=== PATIENT | female | born 2000 | race Caucasian/White ===

== ENCOUNTER 2022-03-31 10:34 | Outpatient (CLI) | payer BC, SELFPAY | END 2022-03-31 10:35 | disposition home or self-care (01) | LOC: FRMREF 10:35 | PROVIDERS: PCP Family Medicine; Visit Provider Family Medicine | DX: Z00.00 Encounter for general adult medical examination without abnormal findings (principal); Z02.5 Encounter for examination for participation in sport | CPT/HCPCS: 85660 ==

== ENCOUNTER 2024-04-11 09:24 | Outpatient (CLI) | payer BC, SELFPAY | END 2024-04-11 09:25 | disposition home or self-care (01) | PROVIDERS: PCP Physician Assistant Medical; Visit Provider Physician Assistant Medical | DX: Z13.220 Encounter for screening for lipoid disorders (principal); Z13.228 Encounter for screening for other metabolic disorders; Z13.29 Encounter for screening for other suspected endocrine disorder | CPT/HCPCS: 80053; 80061; 84443 ==

== ENCOUNTER 2024-11-15 13:09 | Outpatient (CLI) | payer BC, SELFPAY | END 2024-11-15 13:10 | disposition home or self-care (01) | LOC: FRMREF 13:10 | PROVIDERS: PCP Physician Assistant Medical; Visit Provider Physician Assistant Medical | DX: D50.9 Iron deficiency anemia, unspecified (principal) | CPT/HCPCS: 82728 ==

== ENCOUNTER 2024-12-04 13:02 | Outpatient (RCR) | payer BC, SELFPAY ==
--- NOTE | 2024-11-27 15:32 | URNOTE ---
Feraheme Q0138, 1020 mg has been approved x 1 dose 11/17/24-05/16/2025. REf #[id number]
[2024-12-04 13:09] VITALS: BP 130/76; PULSE 82; RESP 21; TEMP 36.6; O2SAT 99
[2024-12-04] MEDS: ferumoxytoL 1,020 MG in 0.9 % SODIUM CHLORIDE 250 ml 250 ML 568 MG IVPB (14:33)
[2024-12-04 15:10] VITALS: BP 100/56; PULSE 66; RESP 18; O2SAT 100
== END 2025-06-02 23:59 | disposition home or self-care (01) ==
LOC: CCIC 13:02
PROVIDERS: PCP Physician Assistant Medical; Referring Provider Physician Assistant Medical; Visit Provider Clinical Nurse Specialist
DX: D50.9 Iron deficiency anemia, unspecified (principal)
CPT/HCPCS: 96365; J7050; Q0138

== ENCOUNTER 2025-05-21 10:20 | Outpatient (CLI) | payer BC, SELFPAY | END 2025-05-21 10:21 | disposition home or self-care (01) | LOC: NFLDREF 05-24 15:30 | PROVIDERS: Referring Provider Physician Assistant Medical; Visit Provider Physician Assistant Medical | DX: Z00.00 Encounter for general adult medical examination without abnormal findings (principal); D50.0 Iron deficiency anemia secondary to blood loss (chronic) | CPT/HCPCS: 80053; 80061 ==

== ENCOUNTER 2025-06-11 09:46 | Outpatient (CLI) | payer BC, SELFPAY ==
--- NOTE | 2025-06-11 10:00 | CRLHL7_ITS ---
For Patients: As a result of the Century Cures Act, medical imaging exams and procedure reports are released immediately into your electronic medical record. You may view this report before your referring provider. If you have questions, please contact your health care provider. Indication: Chronic sinusitis. Technique: Noncontrast CT of the paranasal sinuses with multiplanar reconstruction utilizing bone and soft tissue algorithms. Comparison: None available. Findings: Frontal sinuses: Clear. Maxillary sinuses: Small postinflammatory left maxillary retention cyst. Trace mucosal thickening in the right maxillary sinus. Mucosal apposition with the maxillary infundibula with otherwise patent ostiomeatal complexes. Ethmoid sinuses: Trace diffuse mucosal thickening. Focal soft tissue density within the left anterior ethmoid air cells. Sphenoid sinuses: Clear. Mucosal apposition at the sphenoid ostia. Osseous sphenoid septa originating posteriorly from the carotid canals. Nasal cavity: Leftward deviation of the nasal septum with soft tissue density effacing the left inferior meatus. No large septal spur. Impression: 1. Trace mucosal thickening within the anterior ethmoid air cells and right maxillary sinus. 2. Small postinflammatory left maxillary mucous retention cyst. 3. Leftward deviation of the nasal septum with mild effacement of the left anterior nasal cavity and inferior meatus. Please note that all CT scans at this facility use dose modulation, iterative reconstruction, and/or weight-based dosing when appropriate to reduce radiation dose to as low as reasonably achievable. Dictated by Gabe Rodriguez MD @ 06/11/2025 3:23:29 PM (Electronically Signed)
== END 2025-06-11 09:47 | disposition home or self-care (01) ==
LOC: CT 09:47
PROVIDERS: PCP Physician Assistant Medical; Visit Provider Otolaryngology
DX: J32.9 Chronic sinusitis, unspecified (principal); J32.0 Chronic maxillary sinusitis; J34.2 Deviated nasal septum; J32.2 Chronic ethmoidal sinusitis
CPT/HCPCS: 70486

== ENCOUNTER 2025-07-20 08:13 | Day surgery (SDC) | payer BC, SELFPAY ==
[2025-07-20] VITALS (12 sets, daily range): BP systolic 96–125; BP diastolic 57–74; PULSE 54–83; RESP 12–16; TEMP 36.2–36.6; O2SAT 96–100; BMI 26.6
[2025-07-20] MEDS: LACTATED RINGERS 1000 ML 1,000 ML 100 ML IV (08:45)
[2025-07-20] MEDS: SODIUM CHLORIDE 0.9 % (FLUSH) 10 ML SYRINGE IVF (08:51)
[2025-07-20 08:52] LABS: Ur HCG Qualitative* Negative (Negative)
[2025-07-20] MEDS: AYR SALINE NASAL GEL 1 APPLIC NOSTRIL-B (09:40)
[2025-07-20] MEDS: MUPIROCIN 1 GM PACKET 1 APPLIC TOPICAL (09:45)
[2025-07-20] MEDS: BUPIVACAINE 0.5%/EPINEPHRINE 0.9 MG (30.9 ML) INJECTION (10:01)
--- NOTE | 2025-07-20 10:19 | P.ANES_ITS ---
Anesthesia Charges Start Date/Time Anesthesia Start Date: 07/20/25 Anesthesia Start Time: 09:32 Stop Date/Time Anesthesia Stop Date: 07/20/25 Anesthesia Stop Time: 10:21 Coding CPT Codes CPT Codes: ANESTH NOSE/SINUS SURGERY - 72548 ([id number]) P2 - PATIENT W/MILD SYST DISEASE, QK - [place] 2-4 CNCRNT ANES PROC, QX - DIRECTOR LOAN SVC W/ MD MED DIRECTION
--- NOTE | 2025-07-20 10:19 | W.ANESCHARGE ---
Anesthesia Charges Start Date/Time Anesthesia Start Date: 07/20/25 Anesthesia Start Time: 09:32 Stop Date/Time Anesthesia Stop Date: 07/20/25 Anesthesia Stop Time: 10:21 Coding CPT Codes CPT Codes: ANESTH NOSE/SINUS SURGERY - 72068 ([id number]) P2 - PATIENT W/MILD SYST DISEASE, QK - PULLER OVER 2-4 CNCRNT ANES PROC, QX - SECURITY TRAINER SVC W/ MD MED DIRECTION
--- NOTE | 2025-07-20 10:56 | W.PM.ENTPROC ---
Procedure Note Date of procedure: 07/20/25 Procedure: Preop diagnosis bilateral middle turbinate melonie bullosa, deviated septum, inferior turbinate hypertrophy, nasal obstruction, nasal headache Postop same Procedure nasal septoplasty, submucous partial resection inferior turbinates bilateral endoscopic partial resection middle turbinate melonie bullosa bilateral Under general trach anesthesia patient was prepped and draped usual fashion nose decongested injected. A right hemitransfixion incision was made. Bilateral anterior and posterior tunnels were created. A vertical incision was made anterior to the bony cartilaginous junction and the posterior deflected portions of septal bone were resected and a large piece trimmed returned to intraseptal space. Anteriorly the septum was simply return to midline without resection. The hemitransfixion was closed with 2 4-0 Vicryl fast-absorbing sutures Stab incision was made in the anterior of the right inferior turbinate a tunnel created with a [place] dissector. A conservative anterior submucous resection was performed the Coblation was used to for hemostasis and to cauterize intramurally along the inferior 10%. This was repeated on the left side in identical fashion. The remainder procedure was done with the available assistance of 0 degree endoscopy. The right middle turbinate melonie was incised along its lateral lateral aspect and the bone infractured and the turbinate crushed with the [place] forceps. This was repeated on the left side in identical fashion. Silastic stents were secured with 3-0 nylon and Merocel packing placed beneath the turbinates melonie bullosa on each side. Patient was explained the operating taken recovery in satisfactory condition. Blood loss was less than 10 mL. Surgeon: Cristobal Garcia MD
--- NOTE | 2025-07-20 11:42 | P.ANES_ITS ---
Anesthesia Charges Start Date/Time Anesthesia Start Date: 07/20/25 Anesthesia Start Time: 09:32 Stop Date/Time Anesthesia Stop Date: 07/20/25 Anesthesia Stop Time: 10:21 Coding CPT Codes CPT Codes: ANESTH NOSE/SINUS SURGERY - 61381 ([id number]) QK - INTERVENTION TEACHER 2-4 CNCRNT ANES PROC, QX - ROCKET ENGINE MECHANIC SVC W/ MD MED DIRECTION, P2 - PATIENT W/MILD SYST DISEASE
--- NOTE | 2025-07-20 11:42 | W.ANESCHARGE ---
Anesthesia Charges Start Date/Time Anesthesia Start Date: 07/20/25 Anesthesia Start Time: 09:32 Stop Date/Time Anesthesia Stop Date: 07/20/25 Anesthesia Stop Time: 10:21 Coding CPT Codes CPT Codes: ANESTH NOSE/SINUS SURGERY - 78218 ([id number]) QK - KINESIOLOGY PROFESSOR 2-4 CNCRNT ANES PROC, QX - FLIGHT SURGEON SVC W/ MD MED DIRECTION, P2 - PATIENT W/MILD SYST DISEASE
== END 2025-07-20 11:55 | disposition home or self-care (01) ==
LOC: OR 08:14
PROVIDERS: Anesthesiology; PCP Physician Assistant Medical; Visit Provider Otolaryngology
PROC: (CPT 31231; principal; 2025-07-20 09:00)
DX: J34.2 Deviated nasal septum (principal); J34.3 Hypertrophy of nasal turbinates; J34.89 Other specified disorders of nose and nasal sinuses; R51.9 Headache, unspecified
CPT/HCPCS: 30520; 30140; 30999; 00160; 81025; A9270; J0330; J1100; J2405; J2704; J3010; J3490; J7120